=== PATIENT | female | born 1995 | race Caucasian/White ===

== ENCOUNTER 2025-03-31 22:41 | Emergency (ER) | payer MEDICAID, SELFPAY ==
--- NOTE | ~2025-03-31 | XR_ITS ---
XR chest 1V portable Ordering provider: Ulices Lisa MD History: 29 years Female with . STERNAL CHEST PAIN X 7 HRS. . Comparison: None. FINDINGS: MEDIASTINUM: The cardiac silhouette is moderately enlarged. Congestive jhoan. LUNGS: No effusions or pneumothorax. Bilateral interstitial thickening. OTHER: No free air under the diaphragm. IMPRESSION: Cardiomegaly with cardiac decompensation and pulmonary edema. Pneumonitis is not excluded. Clinical c orrelation advised. Reviewed, dictated and finalized at location A. IMPRESSION: Cardiomegaly with cardiac decompensation and pulmonary edema. Pneumonitis is no t excluded. Clinical correlation advised.
--- NOTE | 2025-03-31 22:42 | ECG_ITS ---
Test Date: 2025-03-31 22:47:22 Measurements Intervals [place] Rate: 100 P: 47 [place]: 165 QRS: -7 QRSD: 125 T: 126 QT: 349 QTc: 450 Interpretive Statements SINUS TACHYCARDIA LEFT VENTRICULAR HYPERTROPHY AND ST-T CHANGE BORDERLINE R WAVE PROGRESSION, ANTERIOR LEADS BASELINE ARTIFACT- II, III, AVR, AVL, AVF BORDERLINE ECG No previous ECG available for comparison Electronically Signed On 04-01-2025 07:20:41 CDT by Josias Montes D.O.
[2025-03-31 22:45] VITALS: BP 235/120; PULSE 101; RESP 28; TEMP 36.6; O2SAT 100
--- NOTE | 2025-03-31 22:47 | ED_ITS ---
HPI - Chest Pain General Chief Complaint: Chest Pain Stated Complaint: CHEST PAIN Time Seen by Provider: 03/31/25 22:47 Source: patient Mode of arrival: ambulatory Limitations: no limitations History of Present Illness HPI narrative: 29-year-old female with a history of smoking,hypertension( not on any medication for the past 1 year) presents to the ED with -- substernal chest pain that started around 4:00 a.m.. No radiation of the pain. No nausea /vomiting. No lightheadedness. No shortness of breath. Pain at 4:00 a.m. was noted to be 9/10. Pain currently is noted to be 4/10. patient drank beer and alcohol after the start of chest pain. -- Blood pressure is noted to be 219/145 -- Patient is very anxious with hyperventilation. Patient smother of enlarged heart in her 40s. No prior history of chest pain. MD complaint: chest pain Onset (ago): hour(s) ( Started 7 hours ago) Timing of current episode: constant Prior episodes: No Onset: during rest Pain location: substernal Pain radiation: none Pain scale (0-10): 9 Quality: aching Relieving factors: nothing Exacerbating factors: nothing Associated symptoms: sense of impending doom Treatment prior to arrival: none Risk Factors Coronary artery disease risk factors: smoking history, hypertension and family history of CAD before age 50 Thoracic aortic dissection risk factors: longstanding hypertension Pulmonary embolism risk factors: morbid obesity Related Data On Oral Contraceptives: No Home Medications ?Medication ?Instructions ?Recorded ?Confirmed ?Last Taken ?Type No Home Medications 03/31/25 03/31/25 Unknown History Allergies Allergy/AdvReac Type Severity Reaction Status Date / Time No Known Allergies Allergy Verified 03/31/25 23:05 Review of Systems 2 Review of Systems: All systems reviewed & are unremarkable except as noted in HPI and below Constitutional: Constitutional: Reports as per HPI and Reports no additional constitutional complaints Eyes: Eyes: Reports as per HPI and Reports no additional eye complaints ENT: Reports system reviewed and no additional complaints, except as documented and Reports as per HPI Cardiovascular: Cardiovascular: Reports as per HPI, Reports no additional cardiovascular complaints and Reports chest pain Respiratory: Respiratory: Reports as per HPI and Reports no additional respiratory complaints Gastrointestinal: Gastrointestinal: Reports as per HPI and Reports no additional gastrointestinal complaints Genitourinary: Genitourinary: Reports no additional female genitourinary complaints and Reports as per HPI Musculoskeletal: Musculoskeletal: Reports no additional musculoskeletal complaints and Reports as per HPI Integumentary/Breasts: Skin/Breast: Reports system reviewed and no additional complaints, except as docu and Reports as per HPI Neurologic: Reports system reviewed and no additional complaints, except as documented and Reports as per HPI Psychiatric: Psychiatric: Reports no additional psychiatric complaints, Reports as per HPI and Reports anxiety Endocrine: Endocrine: Reports no additional endocrine complaints and Reports as per HPI Hematologic/Lymphatic: Hematologic/Lymphatic: Reports no additional hematologic/lymphatic complaints and Reports as per HPI Allergic/Immunologic: Allergic/Immunologic: Reports no additional allergic/immunologic complaints and Reports as per HPI [facility] Past Medical History Medical History (Updated 04/01/25 @ 01:22 by Ulices Lisa MD) Hypertension Social History Social History (Updated 03/31/25 @ 22:57 by Ulices Lisa MD) Social History: smoker Exam 2 Narrative: blood pressure is 219/145 with a heart rate of 100. Const: General: ill appearing Nutritional Appearance: obese O rientation/consciousness: patient oriented x3 Limitations: no limitations HENMT: Head: normal to inspection Ears: external ears normal F conner/Nose/Sinus: Normal external nose present Face and sinus: normal facial exam Mouth: Yes Normal oral and palatal mucosa present Throat: posterior oropharynx normal Eyes: Conjunctivae: conjunctivae normal Pupils: Equal, round and reactive pupils present EOM: EOMs intact bilaterally Direct Ophthalmoscopy: no photophobia Neck: Neck: normal visual inspection, no lymphadenopathy and no meningeal signs Chest: Chest palpation & inspection: normal inspection of the chest Resp: Effort & Inspection: normal respiratory effort Auscultation: clear to auscultation bilaterally Cardio: Rate: regular rate Rhythm: regular rhythm GI: Auscultation: normal bowel sounds Other: No tenderness/rigidity/rebound : General: Yes no CVA tenderness Back/Spine/Pelvis: Back: no CVA tenderness Skin: General skin exam: normal color Rashes: no rashes Wounds: no wounds Neuro: General: patient oriented x3, moves all extremities, no meningeal signs, no focal motor deficits and CN's II-XI intact bilaterally Cranial nerves: Yes Nystagmus not present Speech: normal speech Extrem: General: normal to inspection and no clubbing, cyanosis or edema Psych: Mental Status: mental status grossly normal Affect: Anxious affect present Course Course Emergency Course: hypertensive emergency pulmonary edema chest pain Patient received 20 of labetalol and 5 mg of Norvasc. Current blood pressure is noted to be 185/124 with a heart rate of 73 and an oxygen saturation of 98% on room air. patient received 40 mg of Lasix, 40 mEq of potassium and 25 mg of Aldactone Vital Signs Vital signs: Vital Signs Temperature 36.6 C 03/31/25 22:45 Pulse Rate 101 H 03/31/25 22:45 Respiratory Rate 28 H 03/31/25 22:45 Blood Pressure 235/120 H 03/31/25 22:45 Pulse Oximetry 100 03/31/25 22:45 Oxygen Delivery Room Air 03/31/25 22:45 Temperature 36.6 C 03/31/25 22:45 Pulse Rate 73 04/01/25 00:30 Respiratory Rate 17 04/01/25 00:30 Blood Pressure 186/123 H 04/01/25 00:30 Pulse Oximetry 98 04/01/25 00:30 Oxygen Delivery Room Air 03/31/25 22:45 MDM - Chest Pain MDM Narrative Medical decision making narrative: hypertensive emergency pulmonary edema chest pain Differential Diagnosis Differential diagnosis: Likely unstable angina pectoris Lab Data Attestation: I reviewed the patient's lab results. 03/31/25 23:24 03/31/25 23:24 Labs: Lab Results 03/31/25 Range/Units 23:24 WBC 10.6 (4.8-10.8) K/mm3 RBC 4.83 (4.20-5.40) M/mm3 Hgb 15.3 H (12.0-15.0) g/dL Hct 47.2 (35.0-49.0) % MCV 97.7 (78.0-102.0) fL MCH 31.7 H (27.0-31.0) pg MCHC 32.4 (32-36) g/dL RDW 12.8 (11.6-14.4) % Plt Count 199 (150-420) K/mm3 MPV 11.1 (9.2-11.8) fl Immature Gran % (Auto) 0.3 H (0.0-0.0) % Neut % (Auto) 48.3 L (50.0-70.0) % Lymph % (Auto) 38.3 (18.0-42.0) % [place] % (Auto) 10.0 (2.0-11.0) % Eos % (Auto) 2.4 (1.0-6.0) % Baso % (Auto) 0.7 (0.0-1.0) % Lymph # (Auto) 4.07 (1.10-4.50) K/mm3 [place] # (Auto) 1.06 H (0.10-0.90) K/mm3 Eos # (Auto) 0.25 (0.02-0.50) K/mm3 Baso # (Auto) 0.07 (0.00-0.10) K/mm3 Abs Immat Gran (auto) 0.03 H (0.00-0.00) K/mm3 Absolute Neuts (auto) 5.15 (1.70-7.20) K/mm3 Absolute Nucleated RBC 0.00 (0.00-0.00) K/mm3 Nucleated RBC % 0.0 (0-0.0) % PT 10.8 (9.50-12.1) Seconds INR 1.0 APTT 28.1 (23.9-30.70) Sec Sodium 139 (137-145) mmol/L Potassium 3.0 L (3.4-5.0) mmol/L Chloride 106 (98-107) mmol/L Carbon Dioxide 26 (22-30) mmol/L Anion Gap 7 (4-12) mmol/L BUN 7 (7-17) mg/dL Creatinine 0.82 (0.7-1.0) mg/dL Estim Creat Clear Calc 120 ml/min Estimated GFR > 60 (59 - ) Glucose 99 (65-110) mg/dL Calculated Osmolality 286 (285-295) mOsm/kg Lactic Acid 1.6 (0.4-2.0) mmol/L Calcium 8.7 (8.4-10.2) mg/dL Total Bilirubin 0.6 (0.2-1.3) mg/dL AST 24 (14-36) U/L ALT 22 (6-35) U/L Alkaline Phosphatase 72 (38-126) U/L Troponin I 0.018 (0.000-0.034) ng/mL NT-Pro-B Natriuret Pep 2540 H (19.9-100) pg/mL Total Protein 7.5 (6.3-8.2) g/dL Albumin 4.4 (3.5-5.1) g/dL TSH 3.980 (0.465-4.680) uIU/mL Urine Color Light yellow (Yellow) Urine Appearance Clear (Clear) Urine pH 6.0 (5.0-8.0) Ur Specific [place] <= 1.005 L (1.010-1.020) Urine Protein Negative (Negative) Urine Glucose (UA) Negative (Negative) Urine Ketones Negative (Negative) Ur Blood (Man) Negative (Negative) Urine Nitrate Negative (Negative) Urine Bilirubin Negative (Negative) Urine Urobilinogen 0.2 (0.2-1.0) mg/dL Leukocyte Esterase Rfl Negative (Negative) TAVO/UL Urine Test Negative Urine Opiates Screen Negative (Negative) Urine Methadone Screen Negative (Negative) Ur Barbiturates Screen Negative (Negative) Ur Phencyclidine Scrn Negative (Negative) Ur Amphetamine Screen Negative (Negative) U Benzodiazepines Scrn Negative (Negative) Urine Cocaine Screen Negative (Negative) U Cannabinoids Screen Positive A (Negative) ECG Data EKG #1: ECG completion date: 04/01/25 ECG completion time: 22:47 Interpretation: sinus tachycardia with a heart rate of 100. Normal axis. Left ventricular hypertrophy with secondary ST-T changes. No ST elevation. Discharge Plan Discharge Clinical Impression: Hypertensive emergency Chest pain Qualifiers: Chest pain type: unspecified Qualified Code(s): R07.9 - Chest pain, unspecified CHF (congestive heart failure) Qualifiers: Heart failure type: unspecified Heart failure chronicity: acute Qualified Code(s): I50.9 - Heart failure, unspecified Patient Disposition: Still a Patient Condition: Stable Additional Instructions: transfer patient to [facility]. Patient has been accepted by Patient Language: Macanese Prescriptions: No Action No Home Medications Follow-up/Referrals: UNKNOWN,DOCTOR [Non-Staff] - Time of Disposition: 01:33
--- NOTE | 2025-03-31 23:03 | PC.NURSE ---
RAFAL WITH LAB NOTIFIED OF NEW ORDERS
[2025-03-31 23:06] VITALS: BP 222/157; PULSE 87; RESP 15; O2SAT 100
[2025-03-31] MEDS: LABETALOL HCL INJ 100 MG/20 ML VIAL 20 MG IV PUSH (23:08)
--- NOTE | 2025-03-31 23:21 | PC.NURSE ---
Handed the Urine to Beti Mtz
[2025-03-31 23:27] VITALS: BP 189/129; PULSE 76; RESP 11; O2SAT 97
[2025-03-31 23:30] VITALS: BP 178/125; PULSE 75; RESP 14; O2SAT 96
[2025-03-31 23:39] LABS: Basophils Absolute Auto 0.07 K/mm3 (0.00-0.10); Basophils Percent Auto 0.7 % (0.0-1.0); Eosinophils Absolute Auto 0.25 K/mm3 (0.02-0.50); Eosinophils Percent Auto 2.4 % (1.0-6.0); Hematocrit 47.2 % (35.0-49.0); Hemoglobin 15.3 g/dL (12.0-15.0); Immature Granulocyte Absolute 0.03 K/mm3 (0.00-0.00); Immature Granulocyte Percent A 0.3 % (0.0-0.0); Lymphocytes Absolute Auto 4.07 K/mm3 (1.10-4.50); Lymphocytes Percent Auto 38.3 % (18.0-42.0); Mean Corpuscular HGB Conc 32.4 g/dL (32-36); Mean Corpuscular Hemoglobin 31.7 pg (27.0-31.0); Mean Corpuscular Volume 97.7 fL (78.0-102.0); Mean Platelet Volume 11.1 fl (9.2-11.8); Monocytes Absolute Auto 1.06 K/mm3 (0.10-0.90); Neutrophils Absolute Auto 5.15 K/mm3 (1.70-7.20); Neutrophils Percent Auto 48.3 % (50.0-70.0); Platelet Count Result 199 K/mm3 (150-420); Red Blood Count 4.83 M/mm3 (4.20-5.40); Red Cell Distribution Width 12.8 % (11.6-14.4); White Blood Count 10.6 K/mm3 (4.8-10.8)
[2025-03-31 23:45] VITALS: BP 182/117; PULSE 76; RESP 11; O2SAT 96
[2025-03-31 23:48] VITALS: BP 182/117; PULSE 73
[2025-03-31 23:48] LABS: Partial Thromboplastin Time 28.1 Sec (23.9-30.70); Prothrombin Time 10.8 Seconds (9.50-12.1)
[2025-03-31 23:52] LABS: Add Urine Microscopic? NO; Appearance Urine Clear (Clear); Bilirubin Urine Negative (Negative); Blood Urine Negative (Negative); Color Urine Light Yellow (Yellow); Glucose Urine UA Negative (Negative); Ketones Urine Negative (Negative); Leukocyte Esterase Ur Negative LEU/UL (Negative); Nitrate Urine Negative (Negative); Protein Urine Negative (Negative); Specific Grav Ur <= 1.005 (1.010-1.020); Urobilinogen Urine 0.2 mg/dL (0.2-1.0)
[2025-03-31] MEDS: amLODIPine BESYLATE 5 MG TABLET PO (23:52)
[2025-03-31 23:53] LABS: Alanine Aminotransferase 22 U/L (6-35); Albumin Level 4.4 g/dL (3.5-5.1); Alkaline Phosphatase 72 U/L (38-126); Anion Gap 7 mmol/L (4-12); Aspartate Amino Transferase 24 U/L (14-36); Bilirubin,Total 0.6 mg/dL (0.2-1.3); Blood Urea Nitrogen 7 mg/dL (7-17); Calcium 8.7 mg/dL (8.4-10.2); Carbon Dioxide 26 mmol/L (22-30); Chloride 106 mmol/L (98-107); Estimated CRCL calculation 120 ml/min; Estimated Glomerular Filt Rate > 60; Glucose 99 mg/dL (65-110); Osmolality Calculated 286 mOsm/kg (285-295); Sodium 139 mmol/L (137-145); Total Protein 7.5 g/dL (6.3-8.2)
[2025-03-31 23:54] LABS: Lactic Acid Reflex 1.6 mmol/L (0.4-2.0)
[2025-03-31 23:57] LABS: Pregnancy On Board Control Positive; Urine Pregnancy Test Negative
[2025-04-01] VITALS (9 sets, daily range): BP systolic 172–196; BP diastolic 109–139; PULSE 71–77; RESP 11–20; TEMP 36.6; O2SAT 97–100
[2025-04-01 00:05] LABS: NT Pro B Type Natriuretic Pept 2540 pg/mL (19.9-100); Troponin I 0.018 ng/mL (0.000-0.034)
[2025-04-01 00:07] LABS: Amphetamine Screen Urine Negative (Negative); Barbiturate Screen Urine Negative (Negative); Benzodiazepines Screen Urine Negative (Negative); Cannabinoid Screen Urine Positive (Negative); Cocaine Screen Urine Negative (Negative); Methadone Screen Urine Negative (Negative); Opiate Screen Urine Negative (Negative); Phencyclidine Screen Urine Negative (Negative)
[2025-04-01] MEDS: FUROSEMIDE INJ 40 MG/4 ML VIAL IV PUSH (01:00)
[2025-04-01] MEDS: POTASSIUM CHLORIDE 20 MEQ ER TABLET 40 MEQ PO (01:25)
[2025-04-01] MEDS: SPIRONOLACTONE 25 MG TABLET PO (01:25)
--- NOTE | 2025-04-01 02:00 | PC.NURSE ---
Pt resting, continuing to monitor, BP elevated at 181/127. ERP aware of BP and awaiting transfer to [place], awaiting callback for bed assignment. [place] [facility] [place] w/o difficulty.
--- NOTE | 2025-04-01 02:11 | PC.NURSE ---
Bed obtained from [facility] RN. Pt will go to [facility].
== END 2025-04-01 02:41 | disposition short-term general hospital (02) ==
PROVIDERS: Emergency Provider Internal Medicine Critical Care Medicine; PCP Family Medicine
DX: I11.0 Hypertensive heart disease with heart failure (principal); I50.9 Heart failure, unspecified
CPT/HCPCS: 36415; 71045; 80053; 80307; 81003; 81025; 83605; 83880; 84443; 84484; 85025; 85610; 85730; 93005; 96374; 99285; A9270; J1938

== ENCOUNTER 2025-04-01 03:45 | Observation (INO) | payer BC, SELFPAY ==
[2025-04-01] VITALS (19 sets, daily range): BP systolic 171–220; BP diastolic 98–140; PULSE 72–100; RESP 16–18; TEMP 36.3–36.9; O2SAT 92–100; BMI 39.5
--- NOTE | ~2025-04-01 | US_ITS ---
EXAMINATION:US venous doppler LE BI INDICATION:Lower extremity edema TECHNIQUE: Multiple grayscale, color flow and Doppler images of the right and left lower extremity de ep venous systems were obtained and reviewed. COMPARISON:No prior studies for comparison. FINDINGS: The common femoral, superficial femoral and popliteal veins demonstrate normal respiratory variation, augmentation and compressibility. Color flow is also seen within the posterior tibial, pe roneal, greater saphenous and profunda veins. IMPRESSION: 1: No lower extremity deep venous thrombosis. Reviewed, dictated and finalized at location B.
--- NOTE | ~2025-04-01 | US_ITS ---
EXAMINATION: US retroperitoneal duplex ltd DATE: 04/02/2025 10:46 INDICATION: hypertension TECHNIQUE: Multiple grayscale, color Doppler, and pulsed Doppler images of the kidneys and renal mandeep mahendra were obtained. COMPARISON: None. FINDINGS: The aorta peak systolic velocity is 93 cm/s. Right kidney measures 12.9 x 5.7 x 6.0 cm with normal co ntour and echogenicity and no hydronephrosis. The right renal artery peak systolic velocity is 74 cm/ s in the proximal segment, 462 cm/s in the mid segment, and 43 cm/s in the distal segment. Left kidne y measures 12.9 x 6.5 x 5.2 cm normal contour and echogenicity and no hydronephrosis. The left renal artery peak systolic velocity is 68 cm/s in the proximal segment, 64 cm/s in the mid segment, and 28 cm/s in the distal segment. IMPRESSION: 1. No Doppler evidence of renal artery stenosis. Reviewed, dictated and finalized at location A.
--- NOTE | 2025-04-01 03:12 | ADMGEN ---
This patient, Aaliyah Corona, was admitted to IMU Room 210-01. Patient/family oriented to hospital policies and general routines including ID bracelet, bed and alarms, visiting hours, pain management, procedures, bathroom and other care routines, personal items, smoking policy, room service/diet, and visiting hours. Information on how to activate the Rapid Response Team has been discussed. Patient/Family are encouraged to report perceived risks to care and to ask questions if they do not understand what they are told or what they should do.
--- NOTE | 2025-04-01 03:47 | ECHO_ITS ---
Patient Info Name: Aaliyah Corona Age: 29 years : 1995 Gender: Female Ht: 70 in Wt: 275 lbs BSA: 2.54 m2 HR: 77 bpm BP: 171 / 98 mmHg Technical Quality: Fair Exam Date: 04/01/2025 8:04 AM Patient Status: I Admit Date: 04/01/2025 Exam Type: CA echo dop color flow w con Complete two-dimensional, color flow and Doppler transthoracic echocardiogram is performed with contrast to opacify the left ventricle and to improve the deliniation of the left ventricle endocardial borders. Staff Referring Physician: Tory Su [facility] Benefit Authorizer: Nuha Vaca Attending Provider: Ej Méndez Contrast/Agitated Saline Contrast/Ag. Saline: Definity Amount: 2.00 ml Administered By: Nuha Vaca Existing IV Access: Yes IV Access Condition: patent with no signs of infiltration Summary 1. Definity contrast administered improved wall motion interpretation. 2. Left ventricular chamber dimension is normal. 3. Left ventricular systolic function is normal, estimated at 60-65. 4. There is moderate concentric increased left ventricular wall thickness. 5. The left ventricular diastolic function is grade I diastolic dysfunction. 6. E/e' 11 is mildly elevated. 7. Left atrial chamber dimension is moderately enlarged. 8. Dilated inferior vena cava with >50% collapse upon inspiration consistent with elevated right atrial pressure, 10 mmHg. Left Ventricle Definity contrast administered improved wall motion interpretation. Left ventricular chamber dimension is normal. Left ventricular systolic function is normal, estimated at 60-65. There is moderate concentric increased left ventricular wall thickness. The left ventricular diastolic function is grade I diastolic dysfunction. E/e' 11 is mildly elevated. Right Ventricle Right ventricular chamber dimension is normal. Right ventricular systolic function is normal. Left Atria Left atrial chamber dimension is moderately enlarged. Right Atria Right atrial chamber dimension is normal. Aortic Valve The aortic valve is trileaflet. There is no aortic valve stenosis. There is no aortic valve regurgitation. Pulmonic Valve There is no pulmonic regurgitation. Mitral Valve There is no mitral valve stenosis. There is no mitral valve regurgitation. Tricuspid Valve There is no tricuspid valve regurgitation. Pericardium/Pleural There is no pericardial effusion. Inferior Vena Cava Dilated inferior vena cava with >50% collapse upon inspiration consistent with elevated right atrial pressure, 10 mmHg. Aorta The aortic root size at the sinus of Valsalva is normal. Left Ventricular Outflow Tract Name Value Normal LVOT 2D LVOT Diameter 2.0 cm LVOT Doppler LVOT Peak Velocity 115 cm/s LVOT Peak Gradient 5 mmHg LVOT Mean Gradient 3 mmHg LVOT VTI 18 cm LVOT VTI/AV VTI Ratio 0.6 LVOT Stroke Volume 55 ml LVOT CO 4.2 l/min LVOT CI 1.7 l/min/m2 Pulmonic Valve Name Value Normal RVOT Doppler RVOT Peak Velocity 79 cm/s RVOT Peak Gradient 3 mmHg PV Doppler PV Peak Velocity 127 cm/s PV Peak Gradient 6 mmHg Mitral Valve Name Value Normal MV Diastolic Function MV E Peak Velocity 53 cm/s MV A Peak Velocity 70 cm/s MV E/A 0.8 MV Decel Time (PW) 370 ms MV Annular TDI MV E/e' (Septal) 10.6 MV E/e' (Lateral) 13.2 MV E/e' (Average) 11.9 Tricuspid Valve Name Value Normal Estimated PAP/RSVP RA Pressure 10 mmHg <=5 Aortic Valve Name Value Normal AV Doppler AV Peak Velocity 158 cm/s AV Peak Gradient 10 mmHg AV Mean Gradient 6 mmHg AV VTI 29 cm AV Area (Cont Eq VTI) 1.9 cm2 >=3.0 AV Area (Cont Eq [place]) 2.3 cm2 AV DI ([place]) 0.73 AV Regurgitation 2D LVOT Area 3.1 cm2 Ventricles Name Value Normal LV Dimensions 2D/MM IVS Diastolic Thickness (2D) 1.4 cm 0.6-1.0 LVID Diastole (2D) 5.4 cm 3.8-5.2 LVIW Diastolic Thickness (2D) 1.6 cm 0.6-0.9 LVID Systole (2D) 3.7 cm 2.2-3.5 LVOT Diameter 2.0 cm LV Mass (2D Cubed) 358.46 g 67.00-162.00 LV Mass Index (2D Cubed) 141 g/m2 43-95 Relative Wall Thickness (2D) 0.59 <=0.42 LV Fractional Shortening/Ejection Fraction 2D/MM LV Fractional Shortening (2D) 31 % 27-45 LV EF (2D [place]) 58 % LV Diastolic Volume (4C MOD) 174 ml LV EF (4C MOD) 57 % LV Diastolic Volume (2C MOD) 114 ml LV EF (2C MOD) 71 % LV Diastolic Volume (BP MOD) 143 ml 46-106 LV Diastolic Volume Index (BP MOD) 56 ml/m2 29-61 LV Systolic Volume (BP MOD) 49 ml 14-42 LV Systolic Volume Index (BP MOD) 19 ml/m2 8-24 LV EF (BP MOD) 66 % 54-74 LV Diastolic Length (4C) 8.9 cm LV Systolic Length (4C) 7.7 cm LV Stroke Volume (4C MOD) 99 ml Atria Name Value Normal LA Dimensions LA Volume (4C A-L) 46 ml LA Volume (BP A-L) 47 ml Report Signatures
--- NOTE | 2025-04-01 03:58 | ECG_ITS ---
Test Date: 2025-04-02 08:01:18 Measurements Intervals [place] Rate: 69 P: -8 [place]: 163 QRS: -13 QRSD: 98 T: 107 QT: 407 QTc: 438 Interpretive Statements SINUS RHYTHM WITH SINUS ARRHYTHMIA LEFT VENTRICULAR HYPERTROPHY AND ST-T CHANGE BORDERLINE ECG Compared to ECG 03/31/2025 22:47:22 HEART RATE HAS DECREASED Electronically Signed On 04-02-2025 10:58:28 CDT by Josias Montes D.O.
[2025-04-01 04:28] LABS: Basophils Absolute Auto 0.1 K/mm3 (0.0-0.1); Basophils Percent Auto 0.6 % (0.2-1.2); Eosinophils Absolute Auto 0.2 K/mm3 (0-0.3); Eosinophils Percent Auto 2.1 % (0-4.4); Hematocrit 45.1 % (37.0-47.0); Hemoglobin 14.8 g/dL (12.0-15.0); Immature Granulocyte Absolute 0.02 K/mm3 (0.00-0.031); Immature Granulocyte Percent A 0.2 % (0-0.5); Lymphocytes Absolute Auto 3.21 K/mm3 (0.9-3.2); Lymphocytes Percent Auto 32.9 % (18.3-44.2); Mean Corpuscular HGB Conc 32.8 g/dl (32-36); Mean Corpuscular Volume 97.6 fl (80-100); Mean Platelet Volume 11.2 fl (7.4-10.4); Monocytes Absolute Auto 0.8 K/mm3 (0.1-0.6); Neutrophils Absolute Auto 5.5 K/mm3 (1.3-6.7); Neutrophils Percent Auto 56.2 % (45.5-73.1); Platelet Count Result 176 k/mm3 (150-375); Red Blood Count 4.62 M/mm3 (4.2-5.4); Red Cell Distribution Width 13.2 % (11.5-14.5); White Blood Count 9.8 K/mm3 (4.5-10.0)
[2025-04-01 04:48] LABS: Cholesterol 189 mg/dL (0-200); HDL Direct 52 mg/dL; Magnesium 1.8 mg/dL (1.6-2.3); Triglycerides 123 mg/dL (<150)
[2025-04-01 04:51] LABS: Anion Gap 6 mmol/L (4-12); Blood Urea Nitrogen 5 mg/dL (7-17); Calcium 8.6 mg/dL (8.4-10.2); Carbon Dioxide 29 mmol/L (22-30); Chloride 104 mmol/L (98-107); Estimated CRCL calculation 128 ml/min; Estimated Glomerular Filt Rate > 60; Glucose 96 mg/dL (65-110); Potassium 3.4 mmol/L (3.4-5.0); Sodium 139 mmol/L (137-145)
[2025-04-01 04:59] LABS: LDL Cholesterol Direct 106 mg/dL
[2025-04-01 05:00] LABS: Troponin I < 0.012 ng/mL (0.000-0.034)
--- NOTE | 2025-04-01 05:10 | P.HP_ITS ---
H&P: HPI History of Present Illness Date/Time: 04/01/25 05:10 Chief Complaint: Chest pain. Narrative: This is a 29-year-old female smoker with history of hypertension for which she has not been taking medication for the last year who presented to the emergency department at the [facility] last evening for evaluation of chest pain. Yesterday morning at about 04:00 she had some discomfort in the substernal region which seemed to get better after she drank a beer and some alcohol. Later in the day while out grocery shopping she developed severe, nonradiating pain in the substernal region which she has difficulties describing. Associated symptoms include feelings of anxiety, mild shortness of breath, nausea, and dizziness. With further questioning she admits that she has been feeling short of breath with exertion for a few months if not longer and at time she has noticed some swelling in her lower extremities. She denies syncope, near syncope, pleuritic pain, orthopnea, paroxysmal nocturnal dyspnea, vomiting, calf pain, headache, and vision changes. In the ED: On arrival to the outside facility her temperature was 98?, blood pressure 235/120, pulse 101, respiratory rate 28, SpO2 100% on room air. Labs were significant for hemoglobin of 15.3, potassium 3.0, troponin 0.018, proBNP 2540, TSH 3.980. Urine drug screen was positive for cannabinoids. Chest x-ray showed cardiomegaly with cardiac decompensation and pulmonary edema. EKG showed sinus tachycardia with changes consistent with left ventricular hypertrophy. IV medications received: Labetalol 20 mg, furosemide 40 mg. P.o. medications received: Amlodipine 5 mg, potassium chloride 40 mEq, spironolactone 25 mg. Transfer was initiated to [place] for closer monitoring and Cardiology consultation. At the time my evaluation her blood pressure is 171/98. She admits that she does not check her blood pressure while out in the community. She tells me that she has not been taking her medication as ?it just does not work on me like it does everybody else.? She does not have a primary care provider and is uncertain as to who she will see on discharge. The patient is anxious and states that her mother of an enlarged heart in her 40s and she is worried about that. Review of Systems Review of Systems: 12 systems were reviewed and are negativ e except for as per HPI. [facility] Past Medical History Medical History (Updated 04/01/25 @ 05:22 by Tory Su PA-C) Tobacco dependence Kidney stones Hypertension Family History Family History Mother Congestive heart failure (CHF) Grandparent Lung cancer Social History Social History (Updated 04/01/25 @ 05:21 by Tory Su PA-C) Social History: Surrogate medical decision maker: Mike Bravo, significant other. Code status: Full code. Smoking packs per day: 1 Smoking cigarettes per day: 20.0 Smoking status: Current every day smoker Tobacco type: cigarettes Alcohol intake: current Drinks per week: 2 Substance use: current Substance use type: marijuana Do You Feel Safe in your Home?: Yes Lack of Transportation: YES Lack of Food: Sometimes True Current Housing: I Have Housing Concerned About Future Housing: No Difficulty Paying Gas/Electric Bills: No Difficulty Paying for Meds: No Currently Unemployed: No Education: Trade/Vocational Certificate Difficulty w/ Childcare or Family Care: No Additional living arrangements comments: Lives with boyfriend. No children. Additional occupation/education comments: Unemployed. Spiritual care concerns: No Meds Home Medications and Allergies Home Medications ?Medication ?Instructions ?Recorded ?Confirmed ?Type No Home Medications 03/31/25 04/01/25 History Allergies Allergy/AdvReac Type Severity Reaction Status Date / Time No Known Allergies Allergy Verified 03/31/25 23:05 Vital Signs Vital Signs - 24 hr 04/01/25 02:35 04/01/25 04:00 04/01/25 04:00 Temperature 98.0 F 97.7 F Pulse Rate 83 72 81 Respiratory Rate 18 17 17 Blood Pressure 204/122 H 171/98 H Pulse Oximetry 94 94 94 Oxygen Delivery Room Air 04/01/25 04:00 Temperature Pulse Rate 81 Respiratory Rate Blood Pressure Pulse Oximetry Oxygen Delivery Exam Narrative: General: Nontoxic-appearing female in the semi-Kirkland position in bed. Weight: 125 kg. BMI: 39.5. HEENT: PERRL, EOMI. Sclera anicteric. Oral mucosa moist. Neck: Supple. Exam limited due to neck circumference. Respiratory: Respirations are nonlabored. Lung sounds are clear to auscultation. Cardiovascular: Regular rate and rhythm with S1-S2. Gastrointestinal: Abdomen is soft, obese, nontender, and nondistended with positive bowel sounds. Skin: Warm and dry. Extremities: No cyanosis, clubbing, or significant edema. Radial and pedal pulses intact. Negative Ashlyn sign bilaterally. No palpable knots or cords. Neurological: Alert. Cranial nerves 2-12 are grossly intact. No gross focal deficits to casual conversation. Psychiatric: Pleasant and cooperative with appropriate mood. She is a bit anxious. Judgment and insight with regards to her medical conditions is fair. H&P: Results Labs Labs: Short CBC 04/01/25 Range/Units 04:10 WBC 9.8 (4.5-10.0) K/mm3 Hgb 14.8 (12.0-15.0) g/dL Hct 45.1 (37.0-47.0) % Plt Count 176 (150-375) k/mm3 BMP 04/01/25 04:10 Sodium 139 Potassium 3.4 Chloride 104 Carbon Dioxide 29 BUN 5 L Creatinine 0.80 Glucose 96 Calcium 8.6 Cardiac Enzymes 04/01/25 Range/Units 04:10 Troponin I < 0.012 D (0.000-0.034) ng/mL Assessment and Plan Assessment and plan (1) Hypertensive urgency: Code(s): I16.0 - Hypertensive urgency Status: Acute (2) Suspected congestive heart failure: Code(s): R09.89 - Other specified symptoms and signs involving the circulatory and respiratory systems Status: Acute (3) Tobacco dependence: Code(s): F17.200 - Nicotine dependence, unspecified, uncomplicated Status: Acute (4) Noncompliance with medication regimen: Code(s): Z91.148 - Patient's other noncompliance with medication regimen for other reason Status: Acute Plan The patient presented to the outside facility with complaints of chest pain and some shortness of breath as detailed in HPI. Labs, imaging, EKG, and all reports were personally reviewed. She has uncontrolled hypertension and has not taken her medication for least the past year. Her blood pressure on arrival to the outside facility was 235/120. Blood pressures are improving after she received multiple medications including furosemide IV, labetalol IV, amlodipine p.o., and spironolactone p.o.. I suspect she has been walking around with a significantly elevated blood pressure for quite some time thus we do not want to drop it precipitously. Due to concerns for congestive heart failure with findings of cardiomegaly and interstitial edema on x-ray, she will be started on losartan and carvedilol for now. I will give her another dose of furosemide IV later this morning as she appears nearly euvolemic. Continue to monitor on telemetry. An echocardiogram has been ordered. Consult Cardiology for further recommendations. We discussed the importance of taking her medications as prescribed and the complications she can expect should her condition continue to remain untreated. She will need to have a primary care provider established before discharge for close follow-up. Smoking cessation is imperative and was discussed. Findings and treatment plan were discussed with the patient. Questions were solicited and answered to satisfaction. The patient's medical management will be taken over by the hospitalist team in a.m. Quality VTE Prophylaxis VTE prophylaxis: mechanical ordered The patient has been admitted under observation status. Hospitalist MIPS Advance Care Plan I have confirmed that the patient's Advanced Care Plan is present, code status is documented, or surrogate decision maker is listed in patient medical record.: Yes Medication Reconciliation I have utilized all available resources to obtain, update and review the patients current medications (includes all prescriptions, OTC, herbals, cannabis, and nutritional supplements).: Yes
[2025-04-01] MEDS: PERFLUTREN LIPID MICROSPHERES 1.5 ML VIAL DILUTED TO 10 ML TOTAL VOLUME IV PUSH (08:10)
[2025-04-01] MEDS: FUROSEMIDE INJ 40 MG/4 ML VIAL 20 MG IV PUSH (09:25)
[2025-04-01] MEDS: LOSARTAN POTASSIUM 50 MG TABLET PO (09:25)
[2025-04-01] MEDS: carvediloL 6.25 MG TABLET PO ×2 (09:25→21:48)
--- NOTE | 2025-04-01 09:39 | PM.IMPN ---
Progress Note: A&P Assessment and Plan (1) Hypertensive urgency: Code(s): I16.0 - Hypertensive urgency Status: Acute (2) Suspected congestive heart failure: Code(s): R09.89 - Other specified symptoms and signs involving the circulatory and respiratory systems Status: Acute (3) Tobacco dependence: Code(s): F17.200 - Nicotine dependence, unspecified, uncomplicated Status: Acute (4) Noncompliance with medication regimen: Code(s): Z91.148 - Patient's other noncompliance with medication regimen for other reason Status: Acute Plan This is a 29-year-old female smoker with history of hypertension for which she has not been taking medication for the last year who presented to the emergency department at the [facility] [place] last evening for evaluation of chest pain. Yesterday morning at about 04:00 she had some discomfort in the substernal region which seemed to get better after she drank a beer and some alcohol. Later in the day while out grocery shopping she developed severe, nonradiating pain in the substernal region which she has difficulties describing. Associated symptoms include feelings of anxiety, mild shortness of breath, nausea, and dizziness. With further questioning she admits that she has been feeling short of breath with exertion for a few months if not longer and at time she has noticed some swelling in her lower extremities. She denies syncope, near syncope, pleuritic pain, orthopnea, paroxysmal nocturnal dyspnea, vomiting, calf pain, headache, and vision changes. In the ED: On arrival to the outside facility her temperature was 98?, blood pressure 235/120, pulse 101, respiratory rate 28, SpO2 100% on room air. Labs were significant for hemoglobin of 15.3, potassium 3.0, troponin 0.018, proBNP 2540, TSH 3.980. Urine drug screen was positive for cannabinoids. Chest x-ray showed cardiomegaly with cardiac decompensation and pulmonary edema. EKG showed sinus tachycardia with changes consistent with left ventricular hypertrophy. IV medications received: Labetalol 20 mg, furosemide 40 mg. P.o. medications received: Amlodipine 5 mg, potassium chloride 40 mEq, spironolactone 25 mg. Transfer was initiated to [place] for closer monitoring and Cardiology consultation. She admits that she does not check her blood pressure at home. She used to be on multiple different medications in the past but has not been taking those medication now. Chest pain retrosternal. Troponin negative. EKG with T inversion in lateral leads. Could be strain pattern Accelerated hypertension on losartan and carvedilol. Add amlodipine. Hydralazine IV p.r.n.. Check renal duplex. Echo. Cardiology consultation Acute congestive heart failure likely diastolic. Echo pending. Chest x-ray with cardiomegaly and interstitial edema. Received IV Lasix. Will continue diuresis as ordered. Cardiology consultation. Tobacco abuse nicotine patch is smoking cessation discussed Possible sleep apnea will check with apnea link DVT prophylaxis Lovenox Code status full code Subjective Date/time seen: 04/01/25 09:39 Interval history: Denies any chest pain or shortness of breath. No leg swelling. Blood pressure chronically elevated. Wants to go home. Review of Systems Review of Systems: All systems reviewed & are unremarkable except as noted in HPI and below Exam Narrative: General: Nontoxic-appearing female in the semi-Kirkland position in bed. HEENT: PERRL, EOMI. Sclera anicteric. Oral mucosa moist. Neck: Supple. Exam limited due to neck circumference. Respiratory: Respirations are nonlabored. Lung sounds are clear to auscultation. Cardiovascular: Regular rate and rhythm with S1-S2. Gastrointestinal: Abdomen is soft, obese, nontender, and nondistended with positive bowel sounds. Skin: Warm and dry. Extremities: No cyanosis, clubbing, or significant edema. Radial and pedal pulses intact. Negative Ashlyn sign bilaterally. No palpable knots or cords. Neurological: Alert. Cranial nerves 2-12 are grossly intact. No gross focal deficits to casual conversation. Psychiatric: Pleasant and cooperative with appropriate mood. She is a bit anxious. Judgment and insight with regards to her medical conditions is fair. Objective Data Vital Signs Vital Signs: Vital Signs - 24 hr 04/01/25 02:35 04/01/25 04:00 04/01/25 04:00 Temperature 98.0 F 97.7 F Pulse Rate 83 72 81 Respiratory Rate 18 17 17 Blood Pressure 204/122 H 171/98 H Pulse Oximetry 94 94 94 Oxygen Delivery Room Air 04/01/25 04:00 04/01/25 06:00 04/01/25 08:00 Temperature 97.4 F L Pulse Rate 81 86 100 Respiratory Rate 18 Blood Pressure 212/139 H Pulse Oximetry 100 Oxygen Delivery 04/01/25 08:53 04/01/25 08:54 04/01/25 09:25 Temperature Pulse Rate 82 Respiratory Rate Blood Pressure 214/140 H 220/140 H Pulse Oximetry Oxygen Delivery Meds/Results Medications: Active Medications Generic Name Dose Route Start Last Admin Trade Name Nury PRN Reason Stop Dose Admin Acetaminophen 650 mg 04/01/25 03:45 Acetaminophen 325 Mg Tablet PO Q4H PRN Mild Pain (1-3) or Fever Carvedilol 6.25 mg 04/01/25 09:00 04/01/25 09:25 Carvedilol 6.25 Mg Tablet PO 6.25 mg Q12HR HIMANSHU Administration Losartan Potassium 50 mg 04/01/25 09:00 04/01/25 09:25 Losartan Potassium 50 Mg Tablet PO 50 mg DAILY HIMANSHU Administration Labs Labs: Laboratory Results - last 24 hr 04/01/25 04:10 WBC 9.8 RBC 4.62 Hgb 14.8 Hct 45.1 MCV 97.6 MCH 32.0 MCHC 32.8 RDW 13.2 Plt Count 176 MPV 11.2 H Immature Gran % (Auto) 0.2 Neut % (Auto) 56.2 Lymph % (Auto) 32.9 Lewis % (Auto) 8.0 Eos % (Auto) 2.1 Baso % (Auto) 0.6 Lymph # (Auto) 3.21 H [place] # (Auto) 0.8 H Eos # (Auto) 0.2 Baso # (Auto) 0.1 Abs Immat Gran (auto) 0.02 Absolute Neuts (auto) 5.5 Absolute Nucleated RBC 0.000 Nucleated RBC % 0.0 Sodium 139 Potassium 3.4 Chloride 104 Carbon Dioxide 29 Anion Gap 6 BUN 5 L Creatinine 0.80 Estim Creat Clear Calc 128 Estimated GFR > 60 Glucose 96 Calcium 8.6 Magnesium 1.8 Troponin I < 0.012 D Triglycerides 123 Cholesterol 189 LDL Cholesterol Direct 106 HDL Direct 52
[2025-04-01] MEDS: amLODIPine BESYLATE 5 MG TABLET PO (10:39)
--- NOTE | 2025-04-01 12:05 | PM.CNCAR ---
Assessment and Plan Assessment and plan (1) CHF (congestive heart failure): Qualifiers: Heart failure chronicity: acute Heart failure type: unspecified Qualified Code(s): I50.9 - Heart failure, unspecified Code(s): I50.9 - Heart failure, unspecified Status: Acute Assessment and Plan: Acute diastolic congestive heart failure secondary to hypertensive emergency. Feeling better at this point. Potassium is a little low. Has been started on carvedilol, losartan and amlodipine. Blood pressure is better but still spiking up to about 200 systolic at times. Will add spironolactone 25 mg p.o. daily. Will need outpatient basic metabolic panel in 1-2 weeks. Do not want to drop her blood pressure too fast given the fact that she has been living with a systolic blood pressure in the 180s for a long time. Obviously gradual decrease in BP over a period of weeks or longer would be ideal as long as she has no significant spikes. (2) Chest pain: Qualifiers: Chest pain type: unspecified Qualified Code(s): R07.9 - Chest pain, unspecified Code(s): R07.9 - Chest pain, unspecified Status: Acute Assessment and Plan: Secondary to hypertension emergency (3) Hypertensive emergency: Code(s): I16.1 - Hypertensive emergency Status: Acute Assessment and Plan: No troponin elevation. (4) Hypertension: Code(s): I10 - Essential (primary) hypertension Status: Acute Assessment and Plan: Severe. Her potassium levels are low which does raise the thought of hyper aldosteronism. Will check a renin/aldosterone level. As detailed above (5) Noncompliance with medication regimen: Code(s): Z91.148 - Patient's other noncompliance with medication regimen for other reason Status: Acute Assessment and Plan: Did have a conversation with her about the importance of long-term compliance. Dietary and lifestyle modification for weight loss. (6) Tobacco dependence: Code(s): F17.200 - Nicotine dependence, unspecified, uncomplicated Status: Acute Assessment and Plan: Tobacco abuse counseling also performed as well as marijuana use counseling. History of Present Illness History of Present Illness Consult date/time: 04/01/25 12:05 Requesting physician: Tory Su PA-C Consult reason: hypertension and congestive heart failure Reason For Visit: hypertensive urgency Narrative: Reason for consultation: Hypertensive urgency and CHF Date of service 04/01/2025 Requesting provider: Tory Su History patient is a 29-year-old female who has a history of hypertension. She had been on metoprolol and lisinopril as well as furosemide. She also has anxiety and was on Effexor. She has not been taking any medications for at least a year. She was out grocery shopping and start developed chest pain. Chest pain was anterior chest. Did not radiate into her arm back neck or jaw. It was severe and was associated with shortness of breath, nausea and sweatiness. She has had some dyspnea with exertion and activity over the past number of years. She has also had some lower extremity swelling for about the past year or so. Because of her symptoms it reoccurred later on in the evening she decided to go to the hospital for further workup and evaluation. She was found have an initial blood pressure of 235/120. BNP was elevated at 25 40. Chest x-ray showed pulmonary edema and cardiac decompensation. EKG showed no acute ST or T-wave abnormalities but evidence of left ventricular hypertrophy. She did receive labetalol, furosemide, amlodipine, potassium and spironolactone and transferred to [place] from [place] for further workup and evaluation. She currently is feeling better. She is wanting to go home. She denies any chest pain, shortness breath, syncope, presyncope, paroxysmal nocturnal dyspnea, orthopnea, edema palpitations at this point. Review of Systems Review of Systems: All systems reviewed & are unremarkable except as noted in HPI and below Constitutional: Constitutional: Denies body ache(s) Eyes: Eyes: Denies blurry vision ENT: Reports Normal hearing present Cardiovascular: Cardiovascular: Reports chest pain and Reports palpitations Respiratory: Respiratory: Denies chest congestion Gastrointestinal: Gastrointestinal: Denies abdominal pain Genitourinary: Genitourinary: Denies hematuria Musculoskeletal: Musculoskeletal: Denies back pain Integumentary/Breasts: Skin/Breast: Denies skin pain Neurologic: Denies Abnormal speech present Psychiatric: Psychiatric: Denies behavioral changes Endocrine: Endocrine: Denies excessive sweating Hematologic/Lymphatic: Hematologic/Lymphatic: Denies easy bleeding Allergic/Immunologic: Allergic/Immunologic: Denies GI upset with certain foods PMFSH Past Medical History Medical History (Updated 04/01/25 @ 05:22 by Tory Su PA-C) Tobacco dependence Kidney stones Hypertension Family History Family History Mother Congestive heart failure (CHF) Grandparent Lung cancer Social History Social History (Updated 04/01/25 @ 05:21 by Tory Su PA-C) Social History: Surrogate medical decision maker: Mike rBavo, significant other. Code status: Full code. Smoking packs per day: 1 Smoking cigarettes per day: 20.0 Smoking status: Current every day smoker Tobacco type: cigarettes Alcohol intake: current Drinks per week: 2 Substance use: current Substance use type: marijuana Do You Feel Safe in your Home?: Yes Lack of Transportation: YES Lack of Food: Sometimes True Current Housing: I Have Housing Concerned About Future Housing: No Difficulty Paying Gas/Electric Bills: No Difficulty Paying for Meds: No Currently Unemployed: No Education: Trade/Vocational Certificate Difficulty w/ Childcare or Family Care: No Additional living arrangements comments: Lives with boyfriend. No children. Additional occupation/education comments: Unemployed. Spiritual care concerns: No Meds Home Medications and Allergies Home Medications ?Medication ?Instructions ?Recorded ?Confirmed ?Type No Home Medications 03/31/25 04/01/25 History Allergies Allergy/AdvReac Type Severity Reaction Status Date / Time No Known Allergies Allergy Verified 03/31/25 23:05 Vital Signs Vital Signs - 24 hr 04/01/25 02:35 04/01/25 04:00 04/01/25 04:00 Temperature 36.7 C 36.5 C Pulse Rate 83 72 81 Respiratory Rate 18 17 17 Blood Pressure 204/122 H 171/98 H Pulse Oximetry 94 94 94 Oxygen Delivery Room Air 04/01/25 04:00 04/01/25 06:00 04/01/25 08:00 Temperature 36.3 C L Pulse Rate 81 86 100 Respiratory Rate 18 Blood Pressure 212/139 H Pulse Oximetry 100 Oxygen Delivery 04/01/25 08:00 04/01/25 08:00 04/01/25 08:53 Temperature Pulse Rate 82 76 Respiratory Rate 18 Blood Pressure 214/140 H Pulse Oximetry 100 Oxygen Delivery Room Air 04/01/25 08:54 04/01/25 09:25 04/01/25 10:00 Temperature Pulse Rate 82 82 Respiratory Rate Blood Pressure 220/140 H Pulse Oximetry Oxygen Delivery 04/01/25 10:38 Temperature Pulse Rate Respiratory Rate Blood Pressure 182/126 H Pulse Oximetry Oxygen Delivery Exam Narrative: Pleasant. Awake alert. Appears stated age Const: General: comfortable and no acute distress HENMT: Face/Nose/Sinus: Normal nares present Mouth: Yes moist mucous membranes Eyes: General: appearance normal, both eyes and all related structures Sclera: sclerae normal Neck: Neck: supple and no JVD Chest: Other: No reproducible chest wall pain to palpation Resp: Effort & Inspection: normal respiratory effort Auscultation: clear to auscultation bilaterally Cardio: Rate: regular rate Rhythm: regular rhythm Heart sounds: no murmurs GI: Inspection: non-distended GI Palp: Yes Soft to palpation Auscultation: normal bowel sounds Skin: General skin exam: normal color Neuro: Speech: normal speech Extrem: General: normal to inspection Psych: Mental Status: mental status grossly normal Affect: normal affect Results Labs and Meds 04/01/25 04:10 04/01/25 04:10 Lab results: Cardiac Enzymes 04/01/25 Range/Units 04:10 Troponin I < 0.012 D (0.000-0.034) ng/mL Lipids 04/01/25 Range/Units 04:10 Triglycerides 123 (<150) mg/dL Cholesterol 189 (0-200) mg/dL CBC 04/01/25 Range/Units 04:10 WBC 9.8 (4.5-10.0) K/mm3 RBC 4.62 (4.2-5.4) M/mm3 Hgb 14.8 (12.0-15.0) g/dL Hct 45.1 (37.0-47.0) % Plt Count 176 (150-375) k/mm3 Lymph # (Auto) 3.21 H (0.9-3.2) K/mm3 [place] # (Auto) 0.8 H (0.1-0.6) K/mm3 Eos # (Auto) 0.2 (0-0.3) K/mm3 Baso # (Auto) 0.1 (0.0-0.1) K/mm3 Comprehensive Metabolic Panel 04/01/25 Range/Units 04:10 Sodium 139 (137-145) mmol/L Potassium 3.4 (3.4-5.0) mmol/L Chloride 104 (98-107) mmol/L Carbon Dioxide 29 (22-30) mmol/L BUN 5 L (7-17) mg/dL Creatinine 0.80 (0.7-1.0) mg/dL Glucose 96 (65-110) mg/dL Calcium 8.6 (8.4-10.2) mg/dL Intake and Output 03/31/25 04/01/25 04/01/25 23:59 07:59 15:59 Other: # Unmeasured Voids 0 Patient Weight 04/01/25 23:59 Weight 124.5 kg Echocardiogram personally reviewed and independent interpretation showing. Definity contrast administered improved wall motion interpretation. 2. Left ventricular chamber dimension is normal. 3. Left ventricular systolic function is normal, estimated at 60-65. 4. There is moderate concentric increased left ventricular wall thickness. 5. The left ventricular diastolic function is grade I diastolic dysfunction. 6. E/e' 11 is mildly elevated. 7. Left atrial chamber dimension is moderately enlarged. 8. Dilated inferior vena cava with >50% collapse upon inspiration consistent with elevated right atrial pressure, 10 mmHg. EKG personally reviewed and independent interpretation showing sinus rhythm with left ventricular hypertrophy
[2025-04-01] MEDS: hydrALAZINE HCL 20 MG/ML VIAL 10 MG IV PUSH (12:29)
[2025-04-02] VITALS (13 sets, daily range): BP systolic 155–196; BP diastolic 100–128; PULSE 64–83; RESP 17–20; TEMP 36.7–36.8; O2SAT 94–100
[2025-04-02 07:10] LABS: Basophils Absolute Auto 0.1 K/mm3 (0.0-0.1); Basophils Percent Auto 0.5 % (0.2-1.2); Eosinophils Absolute Auto 0.2 K/mm3 (0-0.3); Eosinophils Percent Auto 2.4 % (0-4.4); Hematocrit 48.9 % (37.0-47.0); Hemoglobin 15.6 g/dL (12.0-15.0); Immature Granulocyte Absolute 0.04 K/mm3 (0.00-0.031); Immature Granulocyte Percent A 0.4 % (0-0.5); Lymphocytes Absolute Auto 1.89 K/mm3 (0.9-3.2); Lymphocytes Percent Auto 18.7 % (18.3-44.2); Mean Corpuscular HGB Conc 31.9 g/dl (32-36); Mean Corpuscular Hemoglobin 31.3 pg (26-34); Mean Platelet Volume 11.1 fl (7.4-10.4); Monocytes Absolute Auto 0.9 K/mm3 (0.1-0.6); Monocytes Percent Auto 8.6 % (2.6-8.5); Neutrophils Percent Auto 69.4 % (45.5-73.1); Platelet Count Result 188 k/mm3 (150-375); Red Blood Count 4.99 M/mm3 (4.2-5.4); Red Cell Distribution Width 13.2 % (11.5-14.5); White Blood Count 10.1 K/mm3 (4.5-10.0)
[2025-04-02 07:25] LABS: Alanine Aminotransferase 22 U/L (6-35); Albumin Level 4.2 g/dL (3.5-5.1); Alkaline Phosphatase 69 U/L (38-126); Anion Gap 5 mmol/L (4-12); Aspartate Amino Transferase 26 U/L (14-36); Bilirubin,Total 0.8 mg/dL (0.2-1.3); Blood Urea Nitrogen 8 mg/dL (7-17); Calcium 9.2 mg/dL (8.4-10.2); Carbon Dioxide 29 mmol/L (22-30); Chloride 102 mmol/L (98-107); Estimated CRCL calculation 134 ml/min; Estimated Glomerular Filt Rate > 60; Glucose 116 mg/dL (65-110); Magnesium 1.9 mg/dL (1.6-2.3); Potassium 3.5 mmol/L (3.4-5.0); Sodium 136 mmol/L (137-145); Total Protein 7.5 g/dL (6.3-8.2)
[2025-04-02] MEDS: amLODIPine BESYLATE 5 MG TABLET PO ×2 (08:07→13:21)
[2025-04-02] MEDS: carvediloL 6.25 MG TABLET PO (08:07)
[2025-04-02] MEDS: SPIRONOLACTONE 25 MG TABLET PO (08:08)
[2025-04-02] MEDS: hydrALAZINE HCL 20 MG/ML VIAL 10 MG IV PUSH ×2 (08:08)
[2025-04-02] MEDS: LOSARTAN POTASSIUM 50 MG TABLET PO (08:08)
[2025-04-02 10:41] LABS: Cortisol Random 9.11 ug/dL
--- NOTE | 2025-04-02 10:42 | P.PNCA_ITS ---
Progress Note: A&P Assessment and Plan (1) CHF (congestive heart failure): Qualifiers: Heart failure chronicity: acute Heart failure type: unspecified Qualified Code(s): I50.9 - Heart failure, unspecified Code(s): I50.9 - Heart failure, unspecified Status: Inactive Assessment and Plan: Acute diastolic congestive heart failure secondary to hypertensive emergency. Feeling better at this point. Potassium is a little low. Has been started on carvedilol, losartan and amlodipine. Blood pressure is better but still spiking up to about 200 systolic at times. Continue spironolactone also. Will need outpatient basic metabolic panel in 1-2 weeks. Do not want to drop her blood pressure too fast given the fact that she has been living with a systolic blood pressure in the 180s for a long time. Obviously gradual decrease in BP over a period of weeks or longer would be ideal as long as she has no significant spikes. Renal ultrasound pending (2) Chest pain: Qualifiers: Chest pain type: unspecified Qualified Code(s): R07.9 - Chest pain, unspecified Code(s): R07.9 - Chest pain, unspecified Status: Inactive Assessment and Plan: Secondary to hypertension emergency (3) Hypertensive emergency: Code(s): I16.1 - Hypertensive emergency Status: Inactive Assessment and Plan: No troponin elevation. (4) Hypertension: Code(s): I10 - Essential (primary) hypertension Status: Acute Assessment and Plan: Severe. Her potassium levels are 3.5 today which is better but still low normal. Will order potassium chloride 40 mg p.o. x1. Jessica DOS Terumo coils are pending. Thyroid was normal. She does need a renal artery ultrasound which can be performed as an outpatient if she goes home to rule out renal artery stenosis or fibromuscular dysplasia as an etiology for difficult to control hypertension. As detailed above (5) Noncompliance with medication regimen: Code(s): Z91.148 - Patient's other noncompliance with medication regimen for other reason Status: Acute Assessment and Plan: Did have a conversation with her about the importance of long-term compliance. Dietary and lifestyle modification for weight loss. (6) Tobacco dependence: Code(s): F17.200 - Nicotine dependence, unspecified, uncomplicated Status: Acute Assessment and Plan: Tobacco abuse counseling also performed as well as marijuana use counseling. Subjective Date/time seen: 04/02/25 10:42 Interval history: 30-year-old admitted for chest pain and hypertensive emergency. Date of service 04/02/2025: She is better. Has no chest pain or shortness of breath. She is very anxious and wants to go home. Review of Systems Review of Systems: All systems reviewed & are unremarkable except as noted in HPI and below Constitutional: Constitutional: Denies body ache(s) and Denies excessive sweating Eyes: Eyes: Denies blurry vision ENT: Reports Normal hearing present Cardiovascular: Cardiovascular: Reports chest pain and Reports palpitations Respiratory: Respiratory: Denies chest congestion Gastrointestinal: Gastrointestinal: Denies abdominal pain Genitourinary: Genitourinary: Denies hematuria Musculoskeletal: Musculoskeletal: Denies back pain Integumentary/Breasts: Skin/Breast: Denies skin pain Neurologic: Reports Normal hearing present, Denies Abnormal speech present and Denies behavioral changes Psychiatric: Psychiatric: Denies behavioral changes Endocrine: Endocrine: Denies excessive sweating and Reports palpitations Hematologic/Lymphatic: Hematologic/Lymphatic: Denies easy bleeding Allergic/Immunologic: Allergic/Immunologic: Denies GI upset with certain foods Exam Narrative: Pleasant. Awake alert. Appears stated age Const: General: comfortable and no acute distress HENMT: Face/Nose/Sinus: Normal nares present Mouth: Yes moist mucous membranes Eyes: General: appearance normal, both eyes and all related structures Sclera: sclerae normal Neck: Neck: supple and no JVD Chest: Other: No reproducible chest wall pain to palpation Resp: Effort & Inspection: normal respiratory effort Auscultation: clear to auscultation bilaterally Cardio: Rate: regular rate Rhythm: regular rhythm Heart sounds: no murmurs GI: Inspection: non-distended Auscultation: normal bowel sounds Skin: General skin exam: normal color Neuro: Cranial nerves: Yes Normal hearing present Speech: normal speech and No Abnormal speech present Extrem: General: normal to inspection Psych: Mental Status: mental status grossly normal Affect: normal affect Objective Data Vital Signs Vital Signs: Vital Signs - 24 hr 04/01/25 12:00 04/01/25 12:00 04/01/25 12:00 Temperature 36.8 C Pulse Rate 72 72 72 Respiratory Rate 18 18 Blood Pressure 201/140 H Pulse Oximetry 98 98 Oxygen Delivery Room Air 04/01/25 14:00 04/01/25 16:00 04/01/25 16:00 Temperature Pulse Rate 76 79 79 Respiratory Rate 18 Blood Pressure Pulse Oximetry 98 Oxygen Delivery Room Air 04/01/25 16:00 04/01/25 18:00 04/01/25 19:33 Temperature 36.5 C 36.9 C Pulse Rate 83 78 76 Respiratory Rate 18 16 Blood Pressure 198/113 H 180/111 H Pulse Oximetry 99 100 Oxygen Delivery 04/01/25 20:00 04/01/25 20:00 04/01/25 21:48 Temperature Pulse Rate 75 76 Respiratory Rate Blood Pressure Pulse Oximetry Oxygen Delivery Room Air 04/01/25 22:00 04/01/25 22:45 04/01/25 23:11 Temperature 36.6 C Pulse Rate 76 82 Respiratory Rate 17 Blood Pressure 190/110 H Pulse Oximetry 93 92 Oxygen Delivery Room Air 04/02/25 00:00 04/02/25 00:00 04/02/25 02:00 Temperature Pulse Rate 65 73 Respiratory Rate Blood Pressure Pulse Oximetry Oxygen Delivery Room Air 04/02/25 04:00 04/02/25 04:00 04/02/25 04:00 Temperature 36.7 C Pulse Rate 64 80 Respiratory Rate 17 Blood Pressure 182/124 H Pulse Oximetry 94 Oxygen Delivery Room Air 04/02/25 06:00 04/02/25 06:56 04/02/25 07:42 Temperature 36.8 C Pulse Rate 78 74 73 Respiratory Rate 18 Blood Pressure 155/100 H 196/123 H Pulse Oximetry 100 Oxygen Delivery 04/02/25 08:00 04/02/25 08:07 04/02/25 10:00 Temperature Pulse Rate 73 76 83 Respiratory Rate Blood Pressure Pulse Oximetry Oxygen Delivery Intake/Output Intake/Output: Intake & Output 03/30/25 03/31/25 04/01/25 04/02/25 23:59 23:59 23:59 23:59 Intake Total 1080 354 Output Total 2900 Balance -1820 354 Meds/Results Medications: Active Medications Generic Name Dose Route Start Last Admin Trade Name Freq PRN Reason Stop Dose Admin Acetaminophen 650 mg 04/01/25 03:45 Acetaminophen 325 Mg Tablet PO Q4H PRN Mild Pain (1-3) or Fever Amlodipine Besylate 5 mg 04/01/25 09:45 04/02/25 08:07 Amlodipine Besylate 5 Mg Tablet PO 5 mg DAILY HIMANSHU Administration Carvedilol 6.25 mg 04/01/25 09:00 04/02/25 08:07 Carvedilol 6.25 Mg Tablet PO 6.25 mg Q12HR HIMANSHU Administration Hydralazine HCl 10 mg 04/01/25 09:45 04/02/25 08:08 Hydralazine Hcl 20 Mg/Ml Vial IV PUSH 10 mg Q8H PRN Administration Blood Pressure - High Losartan Potassium 50 mg 04/01/25 09:00 04/02/25 08:08 Losartan Potassium 50 Mg Tablet PO 50 mg DAILY HIMANSHU Administration Spironolactone 25 mg 04/02/25 09:00 04/02/25 08:08 Spironolactone 25 Mg Tablet PO 25 mg QAM HIMANSHU Administration Radiology Results: ITS Impressions Venous Doppler Study 04/01/25 13:13 IMPRESSION: 1: No lower extremity deep venous thrombosis. ECHO 2. Left ventricular chamber dimension is normal. 3. Left ventricular systolic function is normal, estimated at 60-65. 4. There is moderate concentric increased left ventricular wall thickness. 5. The left ventricular diastolic function is grade I diastolic dysfunction. 6. E/e' 11 is mildly elevated. 7. Left atrial chamber dimension is moderately enlarged. 8. Dilated inferior vena cava with >50% collapse upon inspiration consistent with elevated right atrial pressure, 10 mmHg. Labs Labs: Laboratory Results - last 24 hr 04/02/25 04/02/25 07:05 09:55 WBC 10.1 H RBC 4.99 Hgb 15.6 H Hct 48.9 H MCV 98.0 MCH 31.3 MCHC 31.9 L RDW 13.2 Plt Count 188 MPV 11.1 H Immature Gran % (Auto) 0.4 Neut % (Auto) 69.4 Lymph % (Auto) 18.7 [place] % (Auto) 8.6 H Eos % (Auto) 2.4 Baso % (Auto) 0.5 Lymph # (Auto) 1.89 [place] # (Auto) 0.9 H Eos # (Auto) 0.2 Baso # (Auto) 0.1 Abs Immat Gran (auto) 0.04 H Absolute Neuts (auto) 7.0 H Absolute Nucleated RBC 0.000 Nucleated RBC % 0.0 Sodium 136 L Potassium 3.5 Chloride 102 Carbon Dioxide 29 Anion Gap 5 BUN 8 Creatinine 0.75 Estim Creat Clear Calc 134 Estimated GFR > 60 Glucose 116 H Calcium 9.2 Magnesium 1.9 Total Bilirubin 0.8 AST 26 ALT 22 Alkaline Phosphatase 69 Total Protein 7.5 Albumin 4.2 Random Cortisol 9.11
[2025-04-02] MEDS: POTASSIUM CHLORIDE 20 MEQ ER TABLET 40 MEQ PO (11:33)
--- NOTE | 2025-04-02 13:05 | PM.DS ---
DS: Admitting Diagnosis Discharge Date 04/02/2025 Admitting Diagnosis Chest pain DS: Discharge Diagnosis Discharge Diagnosis (1) Hypertensive urgency: Code(s): I16.0 - Hypertensive urgency Status: Acute (2) Suspected congestive heart failure: Code(s): R09.89 - Other specified symptoms and signs involving the circulatory and respiratory systems Status: Acute (3) Tobacco dependence: Code(s): F17.200 - Nicotine dependence, unspecified, uncomplicated Status: Acute (4) Noncompliance with medication regimen: Code(s): Z91.148 - Patient's other noncompliance with medication regimen for other reason Status: Acute DS: Summary Hospital Course Hospital Course: This is a 29-year-old female smoker with history of hypertension for which she has not been taking medication for the last year who presented to the emergency department at the [facility] last evening for evaluation of chest pain. Yesterday morning at about 04:00 she had some discomfort in the substernal region which seemed to get better after she drank a beer and some alcohol. Later in the day while out grocery shopping she developed severe, nonradiating pain in the substernal region which she has difficulties describing. Associated symptoms include feelings of anxiety, mild shortness of breath, nausea, and dizziness. With further questioning she admits that she has been feeling short of breath with exertion for a few months if not longer and at time she has noticed some swelling in her lower extremities. She denies syncope, near syncope, pleuritic pain, orthopnea, paroxysmal nocturnal dyspnea, vomiting, calf pain, headache, and vision changes. In the ED: On arrival to the outside facility her temperature was 98?, blood pressure 235/120, pulse 101, respiratory rate 28, SpO2 100% on room air. Labs were significant for hemoglobin of 15.3, potassium 3.0, troponin 0.018, proBNP 2540, TSH 3.980. Urine drug screen was positive for cannabinoids. Chest x-ray showed cardiomegaly with cardiac decompensation and pulmonary edema. EKG showed sinus tachycardia with changes consistent with left ventricular hypertrophy. IV medications received: Labetalol 20 mg, furosemide 40 mg. P.o. medications received: Amlodipine 5 mg, potassium chloride 40 mEq, spironolactone 25 mg. Transfer was initiated to [facility] for closer monitoring and Cardiology consultation. She admits that she does not check her blood pressure at home. She used to be on multiple different medications in the past but has not been taking those medication now. Chest pain retrosternal. Troponin negative. EKG with T inversion in lateral leads. Could be strain pattern Accelerated hypertension on losartan and carvedilol. Add amlodipine. Hydralazine IV p.r.n.. Check renal duplex which is pending. Renin aldosterone level pending. Random cortisol level 9. Echo with diastolic dysfunction grade 1 with normal ejection fraction. Cardiology consultation. She is started on amlodipine losartan carvedilol. Follow up as an outpatient to titrate medications. Discussed with the patient. Her blood pressure was still not optimally controlled for her to be safe discharged. She left against medical advise. Acute congestive heart failure likely diastolic. Echo pending. Chest x-ray with cardiomegaly and interstitial edema. Received IV Lasix. Will continue diuresis as ordered. Cardiology consultation. Tobacco abuse nicotine patch is smoking cessation discussed Possible sleep apnea apnea link ordered however this was not done correctly. Need to do sleep study as an outpatient basis. DVT prophylaxis Lovenox Code status full code Time Spent with Patient Time attestation: Total time spent providing and/or coordinating discharge services: 35 minutes Exam Narrative: General: Nontoxic-appearing female in the semi-K[place]land position in bed. HEENT: PERRL, EOMI. Sclera anicteric. Oral mucosa moist. Neck: Supple. Exam limited due to neck circumference. Respiratory: Respirations are nonlabored. Lung sounds are clear to auscultation. Cardiovascular: Regular rate and rhythm with S1-S2. Gastrointestinal: Abdomen is soft, obese, nontender, and nondistended with positive bowel sounds. Skin: Warm and dry. Extremities: No cyanosis, clubbing, or significant edema. Radial and pedal pulses intact. Negative Ashlyn sign bilaterally. No palpable knots or cords. Neurological: Alert. Cranial nerves 2-12 are grossly intact. No gross focal deficits to casual conversation. Psychiatric: Pleasant and cooperative with appropriate mood. She is a bit anxious. Judgment and insight with regards to her medical conditions is fair. DS: Data Data Completed and Pending Completed studies during hospitalization: Exam Type: CA echo dop color flow w con Complete two-dimensional, color flow and Doppler transthoracic echocardiogram is performed with contrast to opacify the left ventricle and to improve the deliniation of the left ventricle endocardial borders. Staff Referring Physician: Tory Su [facility] Director [employer]: Nuha Vaca Attending Provider: Ej Méndez Contrast/Agitated Saline Contrast/Ag. Saline: Definity Amount: 2.00 ml Administered By: Nuha Vaca Existing IV Access: Yes IV Access Condition: patent with no signs of infiltration Summary 1. Definity contrast administered improved wall motion interpretation. 2. Left ventricular chamber dimension is normal. 3. Left ventricular systolic function is normal, estimated at 60-65. 4. There is moderate concentric increased left ventricular wall thickness. 5. The left ventricular diastolic function is grade I diastolic dysfunction. 6. E/e' 11 is mildly elevated. 7. Left atrial chamber dimension is moderately enlarged. 8. Dilated inferior vena cava with >50% collapse upon inspiration consistent with elevated right atrial pressure, 10 mmHg. Left Ventricle Definity contrast administered improved wall motion interpretation. Left ventricular chamber dimension is normal. Left ventricular systolic function is normal, estimated at 60-65. There is moderate concentric increased left ventricular wall thickness. The left ventricular diastolic function is grade I diastolic dysfunction. E/e' 11 is mildly elevated. Right Ventricle Right ventricular chamber dimension is normal. Right ventricular systolic function is normal. Left Atria Left atrial chamber dimension is moderately enlarged. Right Atria Right atrial chamber dimension is normal. Aortic Valve The aortic valve is trileaflet. There is no aortic valve stenosis. There is no aortic valve regurgitation. Pulmonic Valve There is no pulmonic regurgitation. Mitral Valve There is no mitral valve stenosis. There is no mitral valve regurgitation. Tricuspid Valve There is no tricuspid valve regurgitation. Pericardium/Pleural There is no pericardial effusion. Inferior Vena Cava Dilated inferior vena cava with >50% collapse upon inspiration consistent with elevated right atrial pressure, 10 mmHg. Aorta The aortic root size at the sinus of Valsalva is normal. Labs on day of discharge: Labs from last 24 hours 04/02/25 04/02/25 09:55 07:05 WBC 10.1 H RBC 4.99 Hgb 15.6 H Hct 48.9 H MCV 98.0 MCH 31.3 MCHC 31.9 L RDW 13.2 Plt Count 188 MPV 11.1 H Immature Gran % (Auto) 0.4 Neut % (Auto) 69.4 Lymph % (Auto) 18.7 [place] % (Auto) 8.6 H Eos % (Auto) 2.4 Baso % (Auto) 0.5 Lymph # (Auto) 1.89 [place] # (Auto) 0.9 H Eos # (Auto) 0.2 Baso # (Auto) 0.1 Abs Immat Gran (auto) 0.04 H Absolute Neuts (auto) 7.0 H Absolute Nucleated RBC 0.000 Nucleated RBC % 0.0 Sodium 136 L Potassium 3.5 Chloride 102 Carbon Dioxide 29 Anion Gap 5 BUN 8 Creatinine 0.75 Estim Creat Clear Calc 134 Estimated GFR > 60 Glucose 116 H Calcium 9.2 Magnesium 1.9 Total Bilirubin 0.8 AST 26 ALT 22 Alkaline Phosphatase 69 Total Protein 7.5 Albumin 4.2 Random Cortisol 9.11 Imaging Radiologist's impression: ITS Impressions Venous Doppler Study 04/01/25 13:13 IMPRESSION: 1: No lower extremity deep venous thrombosis. Discharge Plan Discharge Attending physician on discharge: Akil Sanders Consulting providers: David Alarcon Discharging Clinician: Akil Sanders Anticipated Discharge Date/Time: 04/02/25 13:12 Patient Disposition: Left Against Medical Advice Wound Care Instructions: other - see discharge instructions Discharge Instructions: How to Stop Smoking Patient Instructions: Heart Failure (DC), Effects of Smoking, Alcohol, and Medicines on (GEN), How to Stop Smoking (GEN), Heart Healthy Diet (GEN), Cigarette Smoking and Your Health (GEN), Chronic Hypertension (DC), Secondhand Smoke Exposure in Children (GEN), Electronic Cigarettes and Your Health (GEN) Patient Language: Yoruba Stand Alone Forms: General Discharge Information Discharge Medications: New carvedilol [Coreg] 6.25 mg Tablet 6.25 mg PO Q12HR Qty: 60 0RF losartan [Cozaar] 50 mg Tablet 50 mg PO DAILY Qty: 30 0RF spironolactone 25 mg Tablet 25 mg PO QAM Qty: 30 0RF amlodipine 10 mg tablet 10 mg PO DAILY Qty: 30 0RF No Action No Home Medications Other Ambulatory Orders: Basic Metabolic Panel (Routine) Timeframe: 1 Week Location: Determined by Patient Ordered By: Akil Sanders Date of admission: 04/01/25 03:12 Primary Care Provider: Manohar Frey Admitting Provider: Ej Méndez Attending physician on admission: Ej Méndez
== END 2025-04-02 15:21 | disposition left against medical advice (07) ==
PROVIDERS: Internal Medicine Cardiovascular Disease; Physician Assistant; Admitting Provider General Practice; PCP Family Medicine; Visit Provider Internal Medicine
DX: I16.1 Hypertensive emergency (principal); I11.0 Hypertensive heart disease with heart failure; I50.31 Acute diastolic (congestive) heart failure; F41.9 Anxiety disorder, unspecified; F17.210 Nicotine dependence, cigarettes, uncomplicated; R78.4 Finding of other drugs of addictive potential in blood; Z87.442 Personal history of urinary calculi; Z91.148 Patient's other noncompliance with medication regimen for other reason
CPT/HCPCS: 36415; 80048; 80053; 80061; 82088; 82533; 83735; 84244; 84484; 85025; 93005; 93970; 93976; 94762; 96374; 96375; A9270; C8929; G0378; G0379; J0360; J1938; Q9957